=== PATIENT | female | born 1955 | race Caucasian/White ===

== ENCOUNTER 2021-10-17 14:47 | Day surgery (SDCO) | payer MEDICARE, OTHER ==
[~2021-10-17] VITALS: Ht 165.1 cm; Wt 50.8 kg
[2021-10-17 16:51] LABS: BASOPHIL 1.3 % (0-2); EOSINOPHIL 0.9 % (0-7); HCT 42.5 % (37.0-47.0); HGB 15.5 g/dl (12.5-16.0); LYMPHOCYTE 29.5 % (15-48); MCH 32.8 pg (25.0-31.0); MCHC 36.5 g/dL (32.0-36.0); MCV 89.9 fL (78.0-100.0); MPV 8.8 fL (6.0-9.5); NEUTROPHIL 56.9 % (41-80); NRBC 0; PLT 218 K/uL (150-400); RBC 4.73 M/uL (4.20-5.40); RDW 14.1 % (11.5-14.0); WBC 7.6 K/uL (4.0-10.5)
[2021-10-17 16:53] LABS: BUN/CREAT RATIO (CALC) 6.4 RATIO; CREATININE 0.47 mg/dL (0.51-0.95)
[2021-10-17 18:04] LABS: BILIRUBIN NEGATIVE (NEGATIVE); BLOOD NEGATIVE Ery/uL (NEGATIVE); CLARITY CLEAR (CLEAR); GLUCOSE (U) NORMAL (NORMAL); LEUKOCYTES NEGATIVE Leu/uL (NEGATIVE); NITRITE NEGATIVE (NEGATIVE); PROTEIN NEGATIVE (NEGATIVE); SPECIFIC GRAVITY <=1.005 (1.001-1.030); UROBILINOGEN 0.2 mg/dL (0.2-1.0)
[2021-10-17 18:08] LABS: COLOR STRAW (YELLOW)
[2021-10-17 18:16] LABS: CORONAVIRUS 2019 SARS-COV-2 NEGATIVE (NEGATIVE); INFLUENZA A NAA NEGATIVE (NEGATIVE)
[2021-10-17] MEDS ORDERED: TOPROL XL 50 MG50 MG PO (20:27)
[2021-10-17] MEDS ORDERED: MELATONIN5 M2 PO (20:27)
[2021-10-17] MEDS ORDERED: PAXIL20 MG PO (20:27)
[2021-10-18 04:13] LABS: BASOPHIL 1.6 % (0-2); EOSINOPHIL 2.4 % (0-7); HCT 41.9 % (37.0-47.0); HGB 14.7 g/dl (12.5-16.0); MCH 31.8 pg (25.0-31.0); MCHC 35.1 g/dL (32.0-36.0); MCV 90.7 fL (78.0-100.0); MONOCYTE 19.4 % (0-12); NEUTROPHIL 38.4 % (41-80); NRBC 0; PLT 204 K/uL (150-400); RBC 4.62 M/uL (4.20-5.40); RDW 14.5 % (11.5-14.0); WBC 5.1 K/uL (4.0-10.5)
[2021-10-18 04:29] LABS: ALBUMIN 2.8 g/dL (3.4-5.0); BILIRUBIN - TOTAL 1.1 mg/dL (0.2-1.0); BUN/CREAT RATIO (CALC) 7.9 RATIO; CREATININE 0.63 mg/dL (0.51-0.95); GLOBULIN (CALCULATION) 3.4 g/dL; MAGNESIUM 1.9 mg/dL (1.8-2.4); POTASSIUM 3.9 mmol/L (3.5-5.1); TOTAL PROTEIN 6.2 g/dL (6.4-8.2)
[2021-10-18] MEDS ORDERED: REMERON15 MG PO ×2 (10:49→10:51)
[2021-10-18] MEDS ORDERED: ATIVAN1 MG PO ×2 (10:49→10:51)
[2021-10-18] MEDS ORDERED: BUSPIRONE HCL15 MG PO ×2 (10:49→10:51)
== END 2021-10-18 15:10 | disposition home or self-care (01) ==
LOC: FER 14:47 → FTCU 17:41
PROVIDERS: Nurse Practitioner Family; ADMIT Internal Medicine
DX: E87.1 Hypo-osmolality and hyponatremia (principal); F10.10 Alcohol abuse, uncomplicated; F41.8 Other specified anxiety disorders; I10 Essential (primary) hypertension; F17.200 Nicotine dependence, unspecified, uncomplicated; Z20.822 Contact with and (suspected) exposure to COVID-19; Z88.6 Allergy status to analgesic agent; Z88.8 Allergy status to other drugs, medicaments and biological substances
CPT/HCPCS: 36415; 80048; 80053; 81003; 83735; 84295; 85025; 99285; G0378; G0480; J1650; J2060; J7030; U0002